=== PATIENT | male | born 1980 | race Caucasian/White ===

== ENCOUNTER 2024-12-26 14:55 | Emergency (ER) | payer OTHER ==
[2024-12-26] MEDS ORDERED: Lidocaine Hydrochloride 30 ML VIAL SC ONE (15:30)
[2024-12-26] MEDS ORDERED: IBUPROFEN 600 MG TAB PO ONE (15:30)
== END 2024-12-26 17:30 | disposition home or self-care (01) ==
LOC: ED 14:55
DX: S61.412A Laceration without foreign body of left hand, initial encounter (principal); S09.90XA Unspecified injury of head, initial encounter; V83.6XXA Passenger of special industrial vehicle injured in nontraffic accident, initial encounter; Y93.89 Activity, other specified; Y92.488 Other paved roadways as the place of occurrence of the external cause; Y99.8 Other external cause status